=== PATIENT | female | born 1990 | race Caucasian/White ===

== ENCOUNTER 2019-11-28 03:48 | Emergency (ER) | payer OTHER ==
--- NOTE | 2019-11-28 04:13 | PDOC ---
Medical Decision Making - Medical Decision Making 11/28/19 04:13 Patient seen by the advanced practice provider under my supervision. Ancillary testing reviewed as necessary. I agree with plan as outlined by the advanced practice provider. Discharge - Discharge Information Problems reviewed: Yes Clinical Impression/Diagnosis: Abrasions of multiple sites Fall Qualifiers: Encounter type: initial encounter Qualified Code(s): W19.XXXA - Unspecified fall, initial encounter Chin laceration Qualifiers: Encounter type: initial encounter Qualified Code(s): S01.81XA - Laceration without foreign body of other part of head, initial encounter Shoulder pain, left Qualifiers: Chronicity: acute Qualified Code(s): M25.512 - Pain in left shoulder Alcohol intoxication Qualifiers: Complication of substance-induced condition: uncomplicated Qualified Code(s): F10.920 - Alcohol use, unspecified with intoxication, uncomplicated Condition: Fair Disposition: HOME - Follow up/Referral - Patient Discharge Instructions Patient Printed Discharge Instructions: DI for Laceration Repair, DI for Closed Head Injury Additional Instructions: Your tetanus shot was updated today The CAT scans of your head, face and neck revealed no fractures or dislocations. Your shoulder x-ray today shows no acute abnormalities. Keep wound clean and dry Avoid strenuous activity/exercise to create a hot or sweaty environment until sutures are removed Reapply bacitracin ointment 2 times a day until sutures are removed Return to emergency Department or private physician in 5-7 days for suture removal May use Tylenol or Motrin for pain relief Return immediately to emergency department for redness, swelling, pain, or signs of infection - Post Discharge Activity Work/Back to School Note: Back to Work
[2019-11-28 04:39] VITALS: BP 141/86; PULSE 100; TEMP 98; BMI 20.7
--- NOTE | 2019-11-28 04:47 | PDOC ---
History of Present Illness - General Chief Complaint: Laceration Stated Complaint: CHIN LAC Time Seen by Provider: 11/28/19 04:05 History Source: Patient Exam Limitations: Intoxication - History of Present Illness Initial Comments: 11/28/19 04:41 HISTORY OF PRESENT ILLNESS: 29-year-old woman who presents emergency department for evaluation of chin laceration and left shoulder pain status post trip and fall in the street while intoxicated. Sister reports the patient was unable to raise her arms to defend herself during the fall striking her face and left shoulder on the street. Sister was with the patient at the time of the accident and reports that she got up immediately and did not lose consciousness. Patient has not vomited since the initial injury. Unknown last tetanus. No recent travel or sick contacts. PAST MEDICAL HISTORY: Denies past medical history SURGICAL HISTORY: Denies ALLERGIES: No known drug allergies REVIEW OF SYSTEMS Patient uncooperative with review of systems secondary to alcohol intoxication. PHYSICAL EXAM General Appearance: Intoxicated with dried blood over her face and shirt. HEENT: EOMI, PERRLA, normal ENT inspection, normal voice, TMs normal, pharynx normal. No conjunctival pallor. No photophobia, scleral icterus. Abrasions present to left zygoma. Stellate chin laceration present. Neck: Supple. Trachea midline. No tenderness, rigidity, carotid bruit, stridor, lymphadenopathy, or thyromegaly. Respiratory/Chest: Lungs CTAB. No shortness of breath, chest tenderness, respiratory distress, accessory muscle use. No crackles, rales, rhonchi, stridor, wheezing, dullness Cardiovascular: RRR. S1, S2. No JVD, murmur, bradycardia, tachycardia. Vascular Pulses: Dorsalis-Pedis (R): 2+, Dorsalis-Pedis (L): 2+ Gastrointestinal/Abdominal: Normal bowel sounds. Abdomen soft, non-distended. No tenderness or rebound tenderness. No organomegaly, pulsatile mass, guarding, hernia, hepatomegaly, splenomegaly. Lymphatic: No adenopathy, tenderness. Musculoskeletal/Extremities: Multiple abrasions present. Tenderness upon palpation of the left shoulder worse anteriorly. Unable to perform range of motion exercises due to patient's lack of cooperation. Neurovascularly intact. Integumentary: 1 cm x 1 cm stellate laceration present to the left chin. multiple abrasions noted over the left zygoma, left anterior shoulder and bila teral forearms. Neurologic: truck driver helper II-XII intact. Fully oriented, alert. Appropriate mood/affect. Motor strength 5/5. No appreciable EOM palsy, facial droop or sensory deficit. Past History - Medical History Allergies/Adverse Reactions: Allergies Allergy/AdvReac Type Severity Reaction Status Date / Time No Known Allergies Allergy Verified 11/28/19 04:39 - Psycho-Social/Smoking History Smoking History: Never smoked Information on smoking cessation initiated: No - Substance Abuse Hx (Audit-C & DAST Scrn) How often the patient has a drink containing alcohol: Monthly or less How often the patient has six or more drinks on one occasion: Less than monthly Score: In Men: 4 or > Positive; In Women: 3 or > Positive: 2 Screen Result (Pos requires Nsg. Audit-10AR): Negative In the last yr the pt used illegal drug/Rx for NonMed reason: No Score: Yes response is considered Positive: 0 Screen Result (Positive result requires Nsg. DAST-10): Negative *Physical Exam - Vital Signs Last Vital Signs Temp Pulse Resp BP Pulse Ox 98.0 F 100 H 20 141/86 100 11/28/19 04:00 11/28/19 04:00 11/28/19 04:00 11/28/19 04:00 11/28/19 04:00 Procedures - Consent Consent obtained: Verbal, From [facility] (obtained from sister due to ETOH intoxication) - Laceration/Wound Repair Left Anterior Face Wound Length: to 2.5 cm Wound Explored: clean Wound's Depth, Shape: stellate Irrigated w/ Saline: Yes Betadine Prep: Yes Anesthesia: 2% Lidocaine Amount of Anesthetic (ccs): 4 Wound Debrided: minimal Wound Repaired With: Sutures Suture Size/Type: 5:0, nylon Number of Sutures: 3 Layer Closure: No Sterile Dressing Applied: Yes Splint Applied: No Sling Applied: No Progress: 11/28/19 06:15 Patient tolerated well. ED Treatment Course - RADIOLOGY Radiology Studies Ordered: Category Date Time Status CERVICAL SPINE CT W/O CONTR [CT] Stat CT Scan 11/28/19 04:[address] W/O CONTRAST [CT] Stat CT Scan 11/28/19 04:[address] WITHOUT CONTRAST [CT] Stat CT Scan 11/28/19 04:06 Ordered SHOULDER-LEFT [RAD] Stat Radiology 11/28/19 04:06 Ordered Medical Decision Making - Medical Decision Making 11/28/19 04:45 A/P: 29-year-old female for evaluation status post fall while intoxicated Abrasions present to left zygoma, left anterior shoulder bilateral forearms Tender to palpation over the anterior left shoulder. Full active range of mo tion noted. 1 cm x 1 cm stellate laceration present to the left chin. Boostrix CT of the head, C-spine and facial bones X-ray of the left shoulder Laceration repair-see procedure note for details CT scan of the head and face as read by imaging on-call: Intracranial hemorrhage or extra-axial fluid collection. Normal ventricular and parenchymal volume for age. No mass-effect. No midline shift. The visualized paranasal sinuses are unremarkable. The visualized mastoid air cells are unremarkable. Visualized orbits are unremarkable. No calvarial fractures identified. CT scan of the facial bones as read by imaging on-call: No acute abnormality of the maxillofacial region. CT scan of the cervical spine is read by imaging on-call: No acute fracture or subluxation in the cervical spine. X-rays of the left shoulder as read by me: No acute fractures or dislocations are present. AC joint well approximated. Discharge home with sister who is not intoxicated presently. I discussed the physical exam findings, ancillary test results and final diagnoses with the patient. I answered all of the patient's questions. The patient was satisfied with the care received and felt comfortable with the discharge plan and treatment plan. The patient will call their primary care physician within 24 hours to arrange follow-up and will return to the Emergency Department with any new, persistent or worsening symptoms. Portions of this note have been documented using voice recognition software. As a result, errors may occur in the consumer recruiter process. Effort has been made to correct all grammatical and consumer recruiter error, but some may have been missed which may produce sporadic inaccurate consumer recruiter or nonsensical phrases. 11/28/19 05:50 Discharge - Discharge Information Problems reviewed: Yes Clinical Impression/Diagnosis: Abrasions of multiple sites Fall Qualifiers: Encounter type: initial encounter Qualified Code(s): W19.XXXA - Unspecified fall, initial encounter Chin laceration Qualifiers: Encounter type: initial encounter Qualified Code(s): S01.81XA - Laceration without foreign body of other part of head, initial encounter Shoulder pain, left Qualifiers: Chronicity: acute Qualified Code(s): M25.512 - Pain in left shoulder Alcohol intoxication Qualifiers: Complication of substance-induced condition: uncomplicated Qualified Code(s): F10.920 - Alcohol use, unspecified with intoxication, uncomplicated Condition: Fair Disposition: HOME - Admission No - Follow up/Referral - Patient Discharge Instructions Patient Printed Discharge Instructions: DI for Laceration Repair, DI for Closed Head Injury Additional Instructions: Your tetanus shot was updated today The CAT scans of your head, face and neck revealed no fractures or dislocations. Your shoulder x-ray today shows no acute abnormalities. Keep wound clean and dry Avoid strenuous activity/exercise to create a hot or sweaty environment until sutures are removed Reapply bacitracin ointment 2 times a day until sutures are removed Return to emergency Department or private physician in 5-7 days for suture removal May use Tylenol or Motrin for pain relief Return immediately to emergency department for redness, swelling, pain, or signs of infection - Post Discharge Activity Work/Back to School Note: Back to Work
[2019-11-28] MEDS ORDERED: DIPHTH,PERTUSS(ACELL),TET 0.5 ML DISP.SYRIN IM ONE (05:30)
== END 2019-11-28 06:16 | disposition home or self-care (01) ==
LOC: JER 03:48
PROC: 3E0234Z Introduction of Serum, Toxoid and Vaccine into Muscle, Percutaneous Approach (ICD-10-PCS; principal; 2019-11-28)
PROC: 0HQ1XZZ Repair Face Skin, External Approach (ICD-10-PCS; principal; 2019-11-28)
DX: S01.81XA Laceration without foreign body of other part of head, initial encounter (principal); M25.512 Pain in left shoulder; F10.920 Alcohol use, unspecified with intoxication, uncomplicated; W19.XXXA Unspecified fall, initial encounter
CPT/HCPCS: 70450-TC; 70486-TC; 72125-TC; 73030-TC-LT-FY; 90715; 99284-25

== ENCOUNTER 2019-12-05 13:50 | Emergency (ER) | payer OTHER ==
[2019-12-05 13:58] VITALS: BP 129/76; PULSE 70; TEMP 98.6; BMI 23.3
--- NOTE | 2019-12-05 14:00 | PDOC ---
Suture Removal/Wound Check HPI - History of Present Illness Chief Complaint: Suture/Staple Removal(Here) Stated Complaint: REMOVE STITCHES Time Seen by Provider: 12/05/19 13:56 History Source: Yes: Patient Exam Limitations: Yes: No Limitations Treated at: [facility] Date of Last ED visit: 11/28/19 - Previous ED Treatment Type of procedure performed on last visit: Yes: Laceration Repair Tetanus Immunization: Yes: Up to Date Antibiotics Prescribed: No Past History - Travel History Traveled outside of the country in the last 30 days: No Close contact w/someone who was outside of country & ill: No - Medical History Allergies/Adverse Reactions: Allergies Allergy/AdvReac Type Severity Reaction Status Date / Time No Known Allergies Allergy Verified 12/05/19 13:53 - Psycho-Social/Smoking History Patient Lives Alone: No Smoking History: Never smoked Suture Removal/Wound Check PE - Physical Exam Laceration/Wound Check Symptoms: reports: None Current Severity Level: None Maximum Severity Level: None Pain Localization: None Location of Laceration/Wound: left: Chin Pain Radiation: None *Review of Systems - Review of Systems Able to Perform ROS?: Yes Constitutional: No: Symptoms Reported HEENTM: No: Symptoms Reported Cardiac (ROS): No: Lightheadedness ABD/GI: No: Nausea Integumentary: No: Symptoms Reported Neurological: No: Symptoms reported *Physical Exam - Physical Exam General Appearance: Yes: Nourished, Appropriately Dressed. No: Apparent Distress Neck: negative: Decreased range of motion Respiratory/Chest: negative: Respiratory Distress Integumentary: positive: Normal Color, Warm, Moist Neurologic: positive: Fully Oriented, Motor Strength 5/5 (ambulatory) Medical Decision Making - Medical Decision Making 12/05/19 13:57 CC: here for suture removal. 3 sutures, no complaints Exam: removed 3 sutures w/ #10 scalpel without difficulty Plan: discharge with f/u care Discharge - Discharge Information Problems reviewed: Yes Clinical Impression/Diagnosis: Encounter for removal of sutures Condition: Improved Disposition: HOME - Follow up/Referral - Patient Discharge Instructions Patient Printed Discharge Instructions: DI for Suture Removal Additional Instructions: Apply bacitracin to area x 2 days - Post Discharge Activity
== END 2019-12-05 14:35 | disposition home or self-care (01) ==
LOC: JER 13:50
DX: S01.81XA Laceration without foreign body of other part of head, initial encounter (principal); Z48.02 Encounter for removal of sutures
CPT/HCPCS: 99281-25

== ENCOUNTER 2021-06-19 11:05 | Emergency (ER) | payer OTHER ==
[2021-06-19 11:21] VITALS: BP 135/93; PULSE 97; TEMP 97.8; BMI 24.9
[2021-06-19 13:25] LABS: BASO % 0.2 % (0-2.0); EOS % 0.1 % (0-4.5); HEMATOCRIT 43.6 % (32.4-45.2); HEMOGLOBIN 13.9 GM/dL (10.7-15.3); LYMPH % 13.1 % (8-40); MCH 28.7 pg (25.7-33.7); MCHC 31.9 g/dl (32.0-36.0); MEAN CELL VOLUME 89.9 fl (80-96); MEAN PLT VOLUME 8.7 fl (7.5-11.1); MONO % 5.4 % (3.8-10.2); NEUT % 81.2 % (42.8-82.8); PLATELET COUNT 339 10^3/uL (134-434); RBC 4.84 M/mm3 (3.60-5.2); RDW 14.2 % (11.6-15.6); WHITE BLOOD COUNT 9.9 K/mm3 (4.0-10.0)
[2021-06-19 13:41] LABS: CALCIUM 8.9 mg/dL (8.5-10.1)
[2021-06-19 13:42] LABS: ALBUMIN 3.8 g/dl (3.4-5.0); BLOOD UREA NITROGEN 11.7 mg/dL (7-18)
[2021-06-19 13:45] LABS: CREATININE 1.1 mg/dL (0.55-1.3)
[2021-06-19 13:46] LABS: BILIRUBIN,TOTAL 0.3 mg/dL (0.2-1); TOT PROT 8.2 g/dl (6.4-8.2)
[2021-06-20 11:07] LABS: SARS-CoV-2 NAA Not Detected (Not Detected)
== END 2021-06-19 14:51 | disposition home or self-care (01) ==
LOC: JER 11:05
DX: G24.5 Blepharospasm (principal); U07.1 COVID-19
CPT/HCPCS: 36415; 70450-TC; 71045-TC-FY; 80053; 85025; 99284-25; C9803; U0003; U0005